=== PATIENT | male | born 1980 ===

== ENCOUNTER 2019-01-23 09:49 | Emergency (ER) | payer OTHER ==
--- NOTE | 2019-01-23 10:21 | C.PDOC ---
History Of Present Illness 38 year old male presents to ED requesting detox. Patient states that he uses crack cocaine and that his last use was today. Patient was told that no detox beds are available and that he will be placed on the waiting list. Patient has no physical complaints and denies suicidal and homicidal ideation. Time Seen by Provider: 01/23/19 10:07 Chief Complaint (Nursing): Substance Abuse History Per: Patient History/Exam Limitations: no limitations Onset/Duration Of Symptoms: Other (requesting detox) Suicide/Self Injury Attempted (Context): None Modifying Factor(s): Cocaine, Crack Severity: None Associated Symptoms: denies: Suicidal Thoughts, Suicidal Plan Involuntary Hold By: None Recent travel outside of the [place]: No Past Medical History Reviewed: Historical Data, Nursing Documentation, Vital Signs Vital Signs: Last Vital Signs Temp 97.8 F 01/23/19 10:03 Pulse 94 H 01/23/19 10:03 Resp 20 01/23/19 10:03 BP 115/77 01/23/19 10:03 Pulse Ox 99 01/23/19 10:03 - Medical History PMH: Bipolar Disorder, Schizophrenia Surgical History: No Surg Hx Family History: States: Unknown Family Hx - Social History Hx Alcohol Use: Yes Hx Substance Use: Yes - Immunization History Hx Tetanus Toxoid Vaccination: No Hx Influenza Vaccination: No Hx Pneumococcal Vaccination: No Review Of Systems Constitutional: Negative for: Fever, Chills, Weakness Cardiovascular: Negative for: Chest Pain Respiratory: Negative for: Cough, Shortness of Breath Gastrointestinal: Negative for: Nausea, Vomiting Musculoskeletal: Negative for: Back Pain Skin: Negative for: Rash Neurological: Negative for: Weakness, Numbness, Dizziness Psych: Negative for: Suicidal ideation, Other (homicidal ideation) Physical Exam - Physical Exam Appears: Well, No Acute Distress Skin: Normal Color, Warm, Dry Head: Atraumatic, Normacephalic Neck: Normal ROM, Supple Chest: Symmetrical Respiratory: Normal Breath Sounds Extremity: Bilateral: Atraumatic, Normal Color And Temperature, Normal ROM Neurological/Psych: Oriented x3, Normal Speech, Normal Cognition Gait: Steady ED Course And Treatment O2 Sat by Pulse Oximetry: 99 (in RA) Progress Note: Case discussed with crisis sales demonstrator who reports their are no Detox beds available today. Crisis sales demonstrator spoke with patient and provided outside resources Medical Decision Making Medical Decision Making: Impression: 38 year old male requesting detox Plan: Crisis spoke with patient. Patient was told that no detox beds are available. Patient placed on the wait list for detox. Discussed plan with patient who expresses understanding. All questions answered and there is agreement with the plan to discharge home with instructions. Patient stable for discharge. Return if symptoms persist or worsen. Disposition Counseled Patient/Family Regarding: Need For Followup - Disposition Referrals: [facility] [Outside] [facility] [Outside] [facility] [Outside] Disposition: HOME/ ROUTINE Disposition Time: 10:30 Condition: STABLE Additional Instructions: Follow up with clinic Return to ED when detox bed available Instructions: Drug Abuse and Drug Addiction (DC) Forms: [employer] (Sudanese) - POA Present On Arrival: None - Clinical Impression Clinical Impression: Drug abuse - PA / SACK SEWER / Resident Statement MD/DO has reviewed & agrees with the documentation as recorded. (Kay Palacio) - Scribe Statement The provider has reviewed the documentation as recorded by the Scribe (Kay Palacio) All medical record entries made by the Scribe were at my direction and personally dictated by me. I have reviewed the chart and agree that the record accurately reflects my personal performance of the history, physical exam, medical decision making, and the department course for this patient. I have also personally directed, reviewed, and agree with the discharge instructions and disposition.
[2019-01-23 10:50] VITALS: BP 115/77; PULSE 94; RESP 20; TEMP 97.8; O2SAT 99
== END 2019-01-23 10:44 | disposition home or self-care (01) ==
LOC: C.ER 09:49
DX: F19.10 Other psychoactive substance abuse, uncomplicated (principal)